=== PATIENT | male | born 2000 | race African-American/Black ===

== ENCOUNTER 2023-11-14 16:03 | Emergency (ER) | payer OTHER, SELFPAY ==
--- NOTE | ~2023-11-14 | XR_ITS ---
EXAMINATION: XR HAND/WRIST, RIGHT CLINICAL INFORMATION: Injury COMPARISON: None TECHNIQUE: PA, lateral, and oblique views navicular view of the right hand and wrist. 4 views FINDINGS: The bones and soft tissues are normal. No fracture. Alignment is anatomic. Joint spaces are maintained. No erosions or soft tissue calcifications. XR/XR hand wrist RT IMPRESSION: No fracture or dislocation.
[2023-11-14 16:27] VITALS: BP 119/74; PULSE 57; RESP 16; TEMP 36.9; O2SAT 100; BMI 21.5
--- NOTE | 2023-11-14 16:27 | ED.UPPEXIN ---
HPI - Extremity Injury (Upper) General Chief Complaint: Wound/Laceration Stated Complaint: R hand injury @ work Time Seen by Provider: 11/14/23 18:34 Source: patient Mode of arrival: ambulatory Limitations: no limitations History of Present Illness ED Provider: Dr. Ruth Liu HPI narrative: Patient comes to the emergency room complaining of a work injury to the right hand. 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 Patient states that he was sent from work to the ED, his job requested to get drug tested and ETOH level drawn. Patient is agreeable to this. Other than the above-mentioned, patient has no other injuries. 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 Related Data Allergies Allergy/AdvReac Type Severity Reaction Status Date / Time No Known Allergies Allergy Verified 11/14/23 16:28 Review of Systems Review of Systems: Constitutional : No Weight loss, No Fever, No Chills, No Night Sweats, No Fatigue, No Malaise ENT/Mouth : No Hearing loss, No Ear Pain, No Nasal Congestion, No Sinus Pain, No Hoarseness, No sore throat, No Rhinorrhea, No Swallowing Difficulty Eyes: No Eye Pain, No Swelling, No Redness, No Foreign Body, No Discharge, No Vision Changes Cardiovascular : No Chest Pain, No SOB, No Dyspnea on Exertion, No Orthopnea, No Edema, No Palpitations Respiratory : No Cough, No Sputum, No Wheezing, No Smoke Exposure, No Dyspnea Gastrointestinal : No Nausea, No Vomiting, No Diarrhea, No Constipation, No abdominal Pain, No Hematochezia, No Melena Genitourinary : no irregular bleeding, No Dysuria, No Urinary Frequency, No Hematuria, No Urinary Incontinence, No Urgency, No Flank Pain, No Urinary Flow Changes, No Hesitancy Musculoskeletal : Complaining of a skin abrasion to the dorsal aspect of the fingers of the right hand Skin : No Skin Lesions, No rash Neuro : No Weakness, No Numbness, No Paresthesias, No Loss of Consciousness, No Dizziness, No Headache Psych : No Anxiety/Panic, No Depression, No SI/HI/AH/VH, No Social Issues, Heme/Lymph: No Bruising, No Bleeding,No Lymphadenopathy Endocrine : No Polyuria, No Polydipsia, No Temperature Intolerance [facility] Social History Social History Advance Directives: No Advance Directives Information Provided: No Physical Exam Vital Signs: Vital Signs: Last Vital Signs Temp 97.8 F 11/14/23 19:52 Pulse 55 11/14/23 19:52 Resp 16 11/14/23 19:52 BP 127/59 L 11/14/23 19:52 Pulse Ox 98 11/14/23 19:52 O2 Del Method Room Air 11/14/23 19:52 BMI result Body Mass Index 21.5 Const: Other: Appearance: Alert. Oriented X3. No acute distress. Eyes: Pupils equal, round and reactive to light. ENT: Pharynx normal. Neck: Normal inspection. Neck supple. No lymph nodes noted. No crepitus CVS: Normal heart rate and rhythm. Pulses normal. Normal S1 and S2 Respiratory: No respiratory distress. Breath sounds normal. No Wheezing. No rales Abdomen: Soft and nontender. No rigidity. No distention. Skin: Skin warm and dry. Normal skin color. Patient has small abrasions/skin flaps to the dorsum of the 3rd 4th and 5th digits of the right hand, no deep cuts or lacerations Extremities: No lower extremity edema. No Lacerations. No Rash. CT scan above. Patient able to flex and extend all fingers, oppose the thumb. Neuro: Oriented X 3. No motor deficit. No sensory deficit. Moving all extremities. No slurred speech. CN 2 through 12 grossly intact Psych: calm, cooperative, normal affect Course Course Course Narrative: This is a Rapid Medical Examination (RME) performed by Marcelo Pickens PA-C in triage. Full HPI, ROS, assessment and treatment plan per primary provider in the Main ED. 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 His job is also requesting drug/ethanol test as this was a work related injury. Patient consents to this. unsure of last tetanus. abrasions noted to dorsal aspects of 3rd/4th/5th digits on right hand. skin flap noted over right 3rd PIP. full ROM to PIP/DIP/MCPs of all digits on right hand. Plan: xr, UDS, ethanol, tdap ordered. +/- repar Medications Administered Discontinued Medications Generic Name Dose Route Start Last Admin Trade Name Freq PRN Reason Stop Dose Admin Diphtheria/Tetanus/Acell Pertussis 0.5 ml 11/14/23 16:33 11/14/23 19:15 Diphth,Pertus(Acell),Tet Adult 0.5 Ml Syringe IM 11/14/23 16:34 Not Given .ONCE ONE Medical Decision Making Medical Decision Making [facility] Narrative: -my interpretation of x-ray of the hand: No fracture -patient's ETOH level negative. -patient's employer requested a urine toxicology which patient agreed to, positive for THC -pt declined Tdap booster -patient instructed to follow-up with were connections since this was a work-related injury. Differential Diagnosis Differential Diagnoses: The differential diagnosis associated with the presentation includes (Skin abrasion, crush injury, finger fracture, dislocation) Lab Data [facility] Lab Attestation statement: I reviewed the patient's lab results. Labs: Lab Results 11/14/23 11/14/23 Range/Units 16:45 19:47 Urine Opiates Screen Not Detected (Not Detect) Ur Buprenorphine Scrn Not Detected (Not Detect) ng/mL Ur Oxycodone Screen Not Detected (Not Detect) ng/mL Urine Methadone Screen Not Detected (Not Detect) ng/mL Urine Fentanyl Screen Not Detected (Not Detect) Ur Barbiturates Screen Not Detected (Not Detect) Ur Phencyclidine Scrn Not Detected (Not Detect) Ur Amphetamines Screen Not Detected (Not Detect) U Benzodiazepines Scrn Not Detected (Not Detect) Urine Cocaine Screen Not Detected (Not Detect) U Marijuana (THC) Screen POSITIVE H (Not Detect) Ethyl Alcohol < 10 mg/dL Independent Interpretation I performed an independent interpretation of an: Plain X-Ray Radiology Impression Discussion of test interpretation with radiology: I have reviewed the radiologist's reading. Radiologist Impression: The bones and soft tissues are normal. No fracture. Alignment is anatomic. Joint spaces are maintained. No erosions or soft tissue calcifications. XR/XR hand wrist RT IMPRESSION: No fracture or dislocation Discharge Plan Discharge Clinical Impression: Hand injury, Abrasion Patient Disposition: Home, Self-Care Instructions: Skin Tear (ED) Print Language: [place]raini
[2023-11-14 17:13] LABS: Ethanol < 10 mg/dL
--- NOTE | 2023-11-14 18:12 | PC.NURSE ---
Patient doesn't like needles would like to MD regarding tetanus vaccine.
[2023-11-14 19:52] VITALS: BP 127/59; PULSE 55; RESP 16; TEMP 36.6; O2SAT 98
[2023-11-14 20:09] LABS: Amphetamine Screen Urine Not Detected (Not Detect); Barbiturates, Urine Not Detected (Not Detect); Benzodiazepines Screen Urine Not Detected (Not Detect); Buprenorphine Scr Not Detected (Not Detect); Cannabinoid Screen Urine POSITIVE (Not Detect); Cocaine Screen Urine Not Detected (Not Detect); Fentanyl, urine Not Detected (Not Detect); Methadone Screen, Urine Not Detected (Not Detect); Opiate Screen Urine Not Detected (Not Detect); Oxycodone Screen Urine Not Detected (Not Detect); Phencyclidine Screen Urine Not Detected (Not Detect)
[2023-11-14 21:12] VITALS: BP 113/67; PULSE 58; RESP 16; TEMP 36.2; O2SAT 97
== END 2023-11-14 21:13 | disposition home or self-care (01) ==
PROVIDERS: Physician Assistant Medical; Emergency Provider Emergency Medicine
DX: S60.412A Abrasion of right middle finger, initial encounter (principal); S60.414A Abrasion of right ring finger, initial encounter; S60.416A Abrasion of right little finger, initial encounter; W23.0XXA Caught, crushed, jammed, or pinched between moving objects, initial encounter; Y93.9 Activity, unspecified; Y92.89 Other specified places as the place of occurrence of the external cause; Y99.0 Civilian activity done for income or pay
CPT/HCPCS: 36415; 73110; 73130; 80307; 99283